=== PATIENT | female | born 1985 | race American Indian/Alaskan Native ===

== ENCOUNTER 2018-02-09 08:57 | Emergency (ER) | payer OTHER ==
[2018-02-09 09:22] VITALS: BP 111/78
--- NOTE | 2018-02-09 10:02 | Emergency Department Report ---
ED Female HPI - General Chief complaint: Urogenital-Female Stated complaint: UROGENTELIA-FEMALE Time Seen by Provider: 02/09/18 10:02 Source: patient Mode of arrival: Ambulatory Limitations: No Limitations - History of Present Illness Initial comments: This is a 32-year-old -[place] female who presents with vaginal itching for 3 days. Last menstrual period was 01/15/2018. She reports changing soaps a couple days ago and think symptoms may be related to that. She denies vaginal discharge, dysuria, fever, chest pain, frequency, urgency, pelvic pain, and low back pain. MD Complaint: other (vaginal itching) -: days(s) (3 days) Location: labia Radiation: non-radiating Severity: mild Severity scale (0 -10): 3 Quality: other (itching) Consistency: constant Improves with: none Worsens with: movement Are you Now?: No Last Menstrual Period: 01/15/18 EDC: 10/22/18 Associated Symptoms: denies other symptoms - Related Data Sexually active: Yes : 4 Para: 4 A: 0 Previous Rx's Medication Instructions Recorded Last Taken Type Miconazole 2% [Monistat-Derm] 15 gm TP DAILY #1 tube 02/09/18 Unknown Rx Allergies Allergy/AdvReac Type Severity Reaction Status Date / Time aspirin Allergy Unknown Verified 02/09/18 09:23 Penicillins Allergy Itching Verified 02/09/18 09:23 tramadol Allergy Itching Verified 02/09/18 09:23 ED Review of Systems ROS: Stated complaint: UROGENTELIA-FEMALE Other details as noted in HPI Constitutional: denies: chills, fever Respiratory: denies: cough, shortness of breath, wheezing Cardiovascular: denies: chest pain, palpitations Gastrointestinal: denies: abdominal pain, nausea, diarrhea Genitourinary: other (vaginal itching). denies: urgency, dysuria, discharge Musculoskeletal: denies: back pain, joint swelling, arthralgia Skin: denies: rash, lesions Neurological: denies: headache, weakness, numbness, paresthesias Psychiatric: denies: anxiety, depression ED Past Medical Hx - Past Medical History Previous Medical History?: No - Surgical History Past Surgical History?: Yes Additional Surgical History: ; tonsillectomy - Social History Smoking Status: Former Smoker - Medications Home Medications: Home Medications Medication Instructions Recorded Confirmed Last Taken Type Miconazole 2% [Monistat-Derm] 15 gm TP DAILY #1 tube 02/09/18 Unknown Rx ED Physical Exam - General Limitations: No Limitations General appearance: alert, in no apparent distress - Respiratory Respiratory exam: Present: normal lung sounds bilaterally. Absent: respiratory distress - Cardiovascular Cardiovascular Exam: Present: regular rate, tachycardia. Absent: systolic murmur, diastolic murmur, rubs, gallop - GI/Abdominal GI/Abdominal exam: Present: soft, normal bowel sounds - External exam: Present: normal external exam. Absent: erythema, swelling, lesions, lacerations, ecchymosis, bleeding Speculum exam: Present: vaginal discharge (malodorous white discharge). Absent : erythema, cervical discharge, vaginal bleeding, foreign body, tissue, laceration Bi-manual exam: Present: normal bi-manual exam - Neurological Exam Neurological exam: Present: alert, oriented X3 - Psychiatric Psychiatric exam: Present: normal affect, normal mood - Skin Skin exam: Present: warm, dry, intact, normal color. Absent: rash ED Course Vital Signs 02/09/18 02/09/18 09:19 12:18 Temperature 98.8 F Pulse Rate 104 H 79 Respiratory 18 Rate Blood Pressure 111/78 O2 Sat by Pulse 98 Oximetry ED Medical Decision Making - Medical Decision Making This is a 32-year-old -[place] female who presents with vaginal itching for 3 days. Patient was examined by me. Mild tachycardia, will reassess prior to discharge. No acute distress. Reevaluation of HR 79. Obtained wet prep via pelvic exam, no trichomoniasis, clue cells or yeast. Discussed results with patient. Start miconazole for full vulvovaginal candidiasis. Discharged home in stable condition. Discussed prevention options. F/U with PCP or Health Department. Critical care attestation.: If time is entered above; I have spent that time in minutes in the direct care of this critically ill patient, excluding procedure time. ED Disposition Clinical Impression: Itching of vagina, Vulvovaginal candidiasis Disposition: TO HOME OR SELFCARE Is pt being admited?: No Does the pt Need Aspirin: No Condition: Stable Instructions: Vulvovaginal Candidiasis (ED) Additional Instructions: Continue safe sexual intercourse. Apply a thin layer of cream to external vagina bid for 7 days. Follow up with Primary Care Provider or health department. Prescriptions: Miconazole 2% [Monistat-Derm] 15 gm TP DAILY #1 tube Referrals: [facility] [Provider Group] - 3-5 Days [facility] [Provider Group] - 3-5 Days [facility] [Outside] - 3-5 Days Time of Disposition: 11:06 Print Language: AUSTRIAN
== END 2018-02-09 12:11 | disposition home or self-care (01) ==
LOC: ED 08:57
DX: B37.3 Candidiasis of vulva and vagina (principal); N89.8 Other specified noninflammatory disorders of vagina; Z90.89 Acquired absence of other organs; Z87.891 Personal history of nicotine dependence; Z88.6 Allergy status to analgesic agent; Z88.0 Allergy status to penicillin
CPT/HCPCS: 87210; 99283